=== PATIENT | male | born 1995 | race Caucasian/White ===

== ENCOUNTER 2022-11-29 20:00 | Emergency (ER) | payer OTHER ==
[2022-11-29 20:22] VITALS: BP 126/70; PULSE 87; RESP 18; TEMP 98.3
[2022-11-29 20:39] LABS: Appearance,Urine Clear (Clear); Bilirubin,Urine Negative (Negative); Blood,Urine Negative (Negative); Color,Urine Colorless; Glucose,Urine (UA) Negative (Negative); Ketones,Urine Negative (Negative); Leukocyte Esterase,Urine Negative (Negative); Nitrite,Urine Negative (Negative); PH, Urine 6.5 (5.0-8.0); Protein,Urine Negative (Negative); Specific Gravity,Urine <1.005 (1.001-1.035); Urobilinogen,Urine <2.0 mg/dL (<2.0)
[2022-11-29 20:52] LABS: RBC,Urine 0 /hpf (0-5); WBC,Urine 0 /hpf (0-5)
[2022-11-29] MEDS ORDERED: LORazepam 2 MG/ML INJ IV STA (21:26)
--- NOTE | 2022-11-29 21:31 | ED ---
General Adult HPI - General Chief complaint: Urogenital Stated complaint: UTI, Blood in urine, Inflammed Prostate Time Seen by Provider: 11/29/22 21:04 Source: patient Mode of arrival: ambulatory - History of Present Illness Initial comments: 27-year-old male presents to the ED with a chief complaint of blood in his sperm. Patient states for the past year, has had intermittent blood in his sperm. No pain with this however notes that he intermittently has difficulty controlling his stream. Additionally, she notes for the past week has had rectal pressure. States that he is concerned that he has prostatitis due to recent glucose search. Denies receptive anal sex or inserting objects into his anus. Denies fever. Denies testicular swelling or pain. No other complaints. - Related Data Previous Rx's Medication Instructions Recorded Phenyleph/Mineral Oil/Petrolat 1 applic RECTAL QID PRN #28 gm 11/29/22 [Preparation H Ointment] Allergies Allergy/AdvReac Type Severity Reaction Status Date / Time Penicillins Allergy Rash/Hives Verified 11/29/22 20:15 Review of Systems ROS Statement: Those systems with pertinent positive or pertinent negative responses have been documented in the HPI. ROS Other: All systems not noted in ROS Statement are negative. Past Medical History Past Medical History: No Reported History Past Surgical History: Joint Replacement Additional Past Surgical History / Comment(s): R knee General Exam Limitations: no limitations General appearance: alert, anxious Head exam: Present: atraumatic Neck exam: Present: normal inspection Respiratory exam: Present: normal lung sounds bilaterally, respiratory distress Cardiovascular Exam: Present: regular rate, normal rhythm GI/Abdominal exam: Present: soft exam: Present: normal inspection External exam: Present: other (Nonthrombosed external hemorrhoid) Neurological exam: Present: alert, oriented X3 Psychiatric exam: Present: anxious Skin exam: Present: warm, dry Course Vital Signs 11/29/22 20:16 Temperature 98.3 F Pulse Rate 87 Respiratory 18 Rate Blood Pressure 126/70 O2 Sat by Pulse 99 Oximetry Medical Decision Making - Medical Decision Making Was pt. sent in by a medical professional or institution (, PA, BEER COOLER, urgent care, hospital, or senior care...) When possible be specific @ -No Did you speak to anyone other than the patient for history (EMS, parent, family, police, friend...)? What history was obtained from this source @ -No Did you review nursing and triage notes (agree or disagree)? Why? @ -I reviewed and agree with nursing and triage notes Were old charts reviewed (outside hosp., previous admission, EMS record, old EKG, old radiological studies, urgent care reports/EKG's, senior care records)? Report findings @ -No old charts were reviewed Differential Diagnosis (chest pain, altered mental status, abdominal pain women, abdominal pain men, vaginal bleeding, weakness, fever, dyspnea, syncope, headache, dizziness, GI bleed, back pain, seizure, CVA, palpatations, mental health, musculoskeletal)? @ -Differential Abdominal Pain Men: Appendicitis, cholecystitis, diverticulosis, ischemic bowel, pancreatitis, hepatitis, UTI, gastroenteritis, AAA, incarcerated hernia, bowel obstruction, constipation, inflammatory bowel, hepatitis, peptic ulcer disease, splenic infarction, perforated viscus, testicular torsion, this is not meant to be an all-inclusive list EKG interpreted by me (3pts min.). @ -None X-rays interpreted by me (1pt min.). @ -None done CT interpreted by me (1pt min.). @ -None done U/S interpreted by me (1pt. min.). @ -None done What testing was considered but not performed or refused? (CT, X-rays, U/S, labs)? Why? @ -None What meds were considered but not given or refused? Why? @ -None Did you discuss the management of the patient with other professionals (professionals i.e. , PA, BEER COOLER, lab, RT, psych nurse, social media developer, technical support internship, teacher, transit police officer, shoe caser)? Give summary @ -No Was smoking cessation discussed for >3mins.? @ -No Was critical care preformed (if so, how long)? @ -No Were there social determinants of health that impacted care today? How? (Homelessness, low income, unemployed, alcoholism, drug addiction, transportation, low edu. Level, literacy, decrease access to med. care, alf, rehab)? @ -No Was there de-escalation of care discussed even if they declined (Discuss DNR or withdrawal of care, Hospice)? DNR status @ -No What co-morbidities impacted this encounter? (DM, HTN, Smoking, COPD, CAD, Cancer, CVA, ARF, Chemo, Hep., AIDS, mental health diagnosis, sleep apnea, morbid obesity)? @ -None Was patient admitted / discharged? Hospital course, mention meds given and route, prescriptions, significant lab abnormalities, going to OR and other pertinent info. @ -Discharged. Patient not currently having any symptoms of blood in sperm and is afebrile. Additionally, urinalysis here reveals no abnormalities. Exam did reveal nonthrombosed external hemorrhoid. Provided prescription for preparation H. Instructed use of witch afsaneh pads and sitz bath. Additionally advised to increase fiber intake. Provided referral to follow up with urology. Discharged home in stable condition. Undiagnosed new problem with uncertain prognosis? @ -No Drug Therapy requiring intensive monitoring for toxicity (Heparin, Nitro, Insulin, Cardizem)? @ -No Were any procedures done? @ -No Diagnosis/symptom? @ -External hemorrhoid Acute, or Chronic, or Acute on Chronic? @ -Acute Uncomplicated (without systemic symptoms) or Complicated (systemic symptoms)? @ -Uncomplicated Side effects of treatment? @ -No Exacerbation, Progression, or Severe Exacerbation? @ -No Poses a threat to life or bodily function? How? (Chest pain, [place], [place], pneumonia, PE, COPD, DKA, ARF, appy, cholecystitis, CVA, Diverticulitis, Homicidal, Suicidal, threat to staff... and all critical care pts) @ -No - Lab Data Lab Results 11/29/22 Range/Units 20:29 Urine Color Colorless Urine Appearance Clear (Clear) Urine pH 6.5 (5.0-8.0) Ur Specific [place] <1.005 (1.001-1.035) Urine Protein Negative (Negative) Urine Glucose (UA) Negative (Negative) Urine Ketones Negative (Negative) Urine Blood Negative (Negative) Urine Nitrite Negative (Negative) Urine Bilirubin Negative (Negative) Urine Urobilinogen <2.0 (<2.0) mg/dL Ur Leukocyte Esterase Negative (Negative) Urine RBC 0 (0-5) /hpf Urine WBC 0 (0-5) /hpf Urine Bacteria NONE (None) /hpf Urine Mucus NONE (None) /hpf Disposition Clinical Impression: Hemorrhoid Disposition: HOME SELF-CARE Condition: Good Instructions (If sedation given, give patient instructions): Hemorrhoids (ED) Additional Instructions: Please return to the Emergency Department if symptoms worsen or any other concerns. Also try witch afsaneh pads, sitz bath. Increase fiber intake. Follow up with PCP Prescriptions: Phenyleph/Mineral Oil/Petrolat [Preparation H Ointment] 1 applic RECTAL QID PRN #28 gm PRN Reason: Pain Is patient prescribed a controlled substance at d/c from ED?: No Referrals: None,Stated [Primary Care Provider] - 1-2 days Reyes Quezada MD [STAFF PHYSICIAN] - 1-2 days Time of Disposition: 21:31
== END 2022-11-29 21:59 | disposition home or self-care (01) ==
LOC: EC 20:00
DX: K64.9 Unspecified hemorrhoids (principal); Z88.0 Allergy status to penicillin
CPT/HCPCS: 81003; 99283; 96374; J2060

== ENCOUNTER 2023-08-17 21:53 | Emergency (ER) | payer OTHER ==
[2023-08-17] MEDS: DOXYCYCLINE 100 MG CAP PO STA (22:26)
[2023-08-17] MEDS: DIPH,PERTUS(ACELL)TETVAC-LF 0.5 ML VIAL IM ONE (22:27)
--- NOTE | 2023-08-17 22:43 | ED ---
Animal Bite HPI - General Chief Complaint: Animal Bite Stated Complaint: Dog Bite R Hand Time Seen by Provider: 08/17/23 21:59 Source: patient Mode of arrival: ambulatory Limitations: no limitations - History of Present Illness Initial Comments: 27-year-old male presenting with chief complaint of dog bite. The bite was from his own dog. Complaint is to the right pointer finger. Patient still has full range of motion and sensation to the finger. Not sure when her last tetanus shot was. - Related Data Previous Rx's Medication Instructions Recorded Phenyleph/Mineral Oil/Petrolat 1 applic RECTAL QID PRN #28 gm 11/29/22 [Preparation H Ointment] Doxycycline [Vibramycin] 100 mg PO BID 7 Days #14 capsule 08/17/23 Allergies Allergy/AdvReac Type Severity Reaction Status Date / Time Penicillins Allergy Rash/Hives Verified 08/17/23 21:59 Review of Systems ROS Statement: Those systems with pertinent positive or pertinent negative responses have been documented in the HPI. ROS Other: All systems not noted in ROS Statement are negative. Past Medical History Past Medical History: No Reported History History of Any Multi-Drug Resistant Organisms: None Reported Past Surgical History: Joint Replacement Additional Past Surgical History / Comment(s): R knee Past Psychological History: Anxiety Smoking Status: Vaper Past Alcohol Use History: None Reported Past Drug Use History: None Reported General Exam Limitations: no limitations General appearance: alert, in no apparent distress Head exam: Present: atraumatic, normocephalic Eye exam: Present: normal appearance, EOMI Neck exam: Present: normal inspection. Absent: meningismus Respiratory exam: Absent: respiratory distress Cardiovascular Exam: Present: regular rate Right Hand Wrist exam: Absent: normal inspection (Puncture wounds to the right pointer finger) Neurological exam: Present: alert, oriented X3 Psychiatric exam: Present: normal affect, normal mood Skin exam: Present: other (Dog bite right pointer finger) Course Vital Signs 08/17/23 08/17/23 21:56 23:10 Temperature 97.9 F Pulse Rate 84 82 Respiratory 18 18 Rate Blood Pressure 152/88 125/78 O2 Sat by Pulse 100 100 Oximetry Medical Decision Making - Medical Decision Making Was pt. sent in by a medical professional or institution (, PA, FACILITY MAINTENANCE WORKER, urgent care, hospital, or half-way...) When possible be specific @ -No Did you speak to anyone other than the patient for history (EMS, parent, family, police, friend...)? What history was obtained from this source @ -No Did you review nursing and triage notes (agree or disagree)? Why? @ -I reviewed and agree with nursing and triage notes Were old charts reviewed (outside hosp., previous admission, EMS record, old EKG, old radiological studies, urgent care reports/EKG's, half-way records)? Report findings @ -No old charts were reviewed Differential Diagnosis (chest pain, altered mental status, abdominal pain women, abdominal pain men, vaginal bleeding, weakness, fever, dyspnea, syncope, headache, dizziness, GI bleed, back pain, seizure, CVA, palpatations, mental health, musculoskeletal)? @ -Differential includes laceration, fracture, dislocation, this is not an all- inclusive list EKG interpreted by me (3pts min.). @ -As above X-rays interpreted by me (1pt min.). @ -None done CT interpreted by me (1pt min.). @ -None done U/S interpreted by me (1pt. min.). @ -None done What testing was considered but not performed or refused? (CT, X-rays, U/S, labs)? Why? @ -None What meds were considered but not given or refused? Why? @ -None Did you discuss the management of the patient with other professionals (professionals i.e. , PA, FACILITY MAINTENANCE WORKER, lab, RT, psych nurse, social work professor, ledge man, teacher, chief security and safety officer, caseworker intake)? Give summary @ -No Was smoking cessation discussed for >3mins.? @ -No Was critical care preformed (if so, how long)? @ -No Were there social determinants of health that impacted care today? How? (Homelessness, low income, unemployed, alcoholism, drug addiction, transportation, low edu. Level, literacy, decrease access to med. care, retirement, rehab)? @ -No Was there de-escalation of care discussed even if they declined (Discuss DNR or withdrawal of care, Hospice)? DNR status @ -No What co-morbidities impacted this encounter? (DM, HTN, Smoking, COPD, CAD, Cancer, CVA, ARF, Chemo, Hep., AIDS, mental health diagnosis, sleep apnea, morbid obesity)? @ -None Was patient admitted / discharged? Hospital course, mention meds given and route, prescriptions, significant lab abnormalities, going to OR and other pertinent info. @ -27-year-old male presenting with chief complaint of dog bite to the right index finger. This was his own dog. He has full range of motion and sensation on exam. The wound is vigorously irrigated. Educated on wound care and signs of infection. His tetanus is updated today. He is started on doxycycline due to penicillin allergy. Discharged home. Follow-up with PCP. Report back to ER with any new or worsening symptoms. Discussed return parameters and answered all questions. Patient conveyed verbal understanding and agreed to the plan. I discussed this case in detail with my attending Dr. Lynn Undiagnosed new problem with uncertain prognosis? @ -No Drug Therapy requiring intensive monitoring for toxicity (Heparin, Nitro, Insulin, Cardizem)? @ -No Were any procedures done? @ -No Diagnosis/symptom? @ -Dog bite Acute, or Chronic, or Acute on Chronic? @ -Acute Uncomplicated (without systemic symptoms) or Complicated (systemic symptoms)? @ -Uncomplicated Side effects of treatment? @ -No Exacerbation, Progression, or Severe Exacerbation? @ -No Poses a threat to life or bodily function? How? (Chest pain, [place], [place], pneumonia, PE, COPD, DKA, ARF, appy, cholecystitis, CVA, Diverticulitis, Homicidal, Suicidal, threat to staff... and all critical care pts) @ -No Disposition Clinical Impression: Dog bite Disposition: HOME SELF-CARE Condition: Good Instructions (If sedation given, give patient instructions): Animal Bite (ED) Additional Instructions: Follow-up with PCP. Report back to ER with any new or worsening symptoms. Prescriptions: Doxycycline [Vibramycin] 100 mg PO BID 7 Days #14 capsule Is patient prescribed a controlled substance at d/c from ED?: No Referrals: [facility],Clinic [Primary Care Provider] - 1-2 days Time of Disposition: 22:42
[2023-08-17 22:56] VITALS: RESP 18; TEMP 97.9
[2023-08-17 23:32] VITALS: BP 125/78; PULSE 82
== END 2023-08-17 23:16 | disposition home or self-care (01) ==
LOC: EC 21:53
DX: S61.256A Open bite of right little finger without damage to nail, initial encounter (principal); F17.290 Nicotine dependence, other tobacco product, uncomplicated; Z88.0 Allergy status to penicillin; Z23 Encounter for immunization; W54.0XXA Bitten by dog, initial encounter
CPT/HCPCS: 90471; 90715; 99283

== ENCOUNTER 2024-03-24 21:18 | Emergency (ER) | payer OTHER ==
[2024-03-24 21:23] VITALS: TEMP 98.2
--- NOTE | 2024-03-24 22:35 | ED ---
Alcohol HPI - General Chief Complaint: Alcohol Stated Complaint: ETOH Time Seen by Provider: 03/24/24 22:03 Source: patient, EMS Mode of arrival: EMS Limitations: no limitations - History of Present Illness Initial Comments: 28-year-old male brought in by EMS while intoxicated. Mother accompanies the patient, she reports that the patient has been under a lot of stress recently. He recently went through a very stressful break-up. Tonight he drank about a pint +2 beers. She reports that he was acting strange, he was laying on the floor and would not get up. Mother was worried so she called EMS. Patient states that he just feels tired at this time. He has no nausea, vomiting, pain. - Related Data Previous Rx's Medication Instructions Recorded Phenyleph/Mineral Oil/Petrolat 1 applic RECTAL QID PRN #28 gm 11/29/22 [Preparation H Ointment] Doxycycline [Vibramycin] 100 mg PO BID 7 Days #14 capsule 08/17/23 Allergies Allergy/AdvReac Type Severity Reaction Status Date / Time Penicillins Allergy Rash/Hives Verified 03/24/24 21:23 Review of Systems ROS Statement: Those systems with pertinent positive or pertinent negative responses have been documented in the HPI. ROS Other: All systems not noted in ROS Statement are negative. Past Medical History Past Medical History: No Reported History History of Any Multi-Drug Resistant Organisms: None Reported Past Surgical History: Joint Replacement Additional Past Surgical History / Comment(s): R knee Past Psychological History: Anxiety Smoking Status: Vaper Past Alcohol Use History: Occasional Past Drug Use History: Marijuana General Exam General appearance: alert, appears intoxicated Head exam: Present: atraumatic, normocephalic, normal inspection Eye exam: Present: normal appearance, EOMI Neck exam: Present: normal inspection. Absent: meningismus Respiratory exam: Absent: respiratory distress Cardiovascular Exam: Present: regular rate Neurological exam: Present: alert, oriented X3 Psychiatric exam: Present: normal affect, normal mood Skin exam: Present: normal color Course Vital Signs 03/24/24 21:19 Temperature 98.2 F Pulse Rate 88 Respiratory 18 Rate Blood Pressure 124/73 O2 Sat by Pulse 99 Oximetry Medical Decision Making - Medical Decision Making Was pt. sent in by a medical professional or institution (, PA, FUR VAULT ATTENDANT, urgent care, hospital, or [facility]...) When possible be specific @ -No Did you speak to anyone other than the patient for history (EMS, parent, family, police, friend...)? What history was obtained from this source @ -Mother Did you review nursing and triage notes (agree or disagree)? Why? @ -I reviewed and agree with nursing and triage notes Were old charts reviewed (outside hosp., previous admission, EMS record, old EKG, old radiological studies, urgent care reports/EKG's, [facility] records)? Report findings @ -No old charts were reviewed Differential Diagnosis (chest pain, altered mental status, abdominal pain women, abdominal pain men, vaginal bleeding, weakness, fever, dyspnea, syncope, headache, dizziness, GI bleed, back pain, seizure, CVA, palpatations, mental health, musculoskeletal)? @ -Differential includes alcohol intoxication, intoxication from other substance, this is not an all-inclusive list EKG interpreted by me (3pts min.). @ -As above X-rays interpreted by me (1pt min.). @ -None done CT interpreted by me (1pt min.). @ -None done U/S interpreted by me (1pt. min.). @ -None done What testing was considered but not performed or refused? (CT, X-rays, U/S, labs)? Why? @ -None What meds were considered but not given or refused? Why? @ -None Did you discuss the management of the patient with other professionals (professionals i.e. , PA, FUR VAULT ATTENDANT, lab, RT, psych nurse, manager social, independent film maker, teacher, worldwide chief creative officer, shelter case manager)? Give summary @ -No Was smoking cessation discussed for >3mins.? @ -No Was critical care preformed (if so, how long)? @ -No Were there social determinants of health that impacted care today? How? (Homelessness, low income, unemployed, alcoholism, drug addiction, transportation, low edu. Level, literacy, decrease access to med. care, residential, rehab)? @ -No Was there de-escalation of care discussed even if they declined (Discuss DNR or withdrawal of care, Hospice)? DNR status @ -No What co-morbidities impacted this encounter? (DM, HTN, Smoking, COPD, CAD, Cancer, CVA, ARF, Chemo, Hep., AIDS, mental health diagnosis, sleep apnea, morbid obesity)? @ -None Was patient admitted / discharged? Hospital course, mention meds given and route, prescriptions, significant lab abnormalities, going to OR and other pertinent info. @ -28-year-old male brought in by EMS with alcohol intoxication. Patient's mother called EMS when he was lying on the ground and would not get up. Patient is resting showing no acute signs of distress. He answers my questions appropriately, he states that he is just very tired. Vital signs are stable. Patient is having no thoughts of wanting to harm himself or others. Mother does not believe that the patient needs a mental health evaluation. Patient is given IV fluids and discharged home with his mother. Follow-up with PCP. Report back to ER with any new or worsening symptoms. Discussed return parameters and answered all questions. Patient's mother conveyed verbal understanding and agreed to the plan. I discussed this case in detail with my attending Dr. Torres Undiagnosed new problem with uncertain prognosis? @ -No Drug Therapy requiring intensive monitoring for toxicity (Heparin, Nitro, Insulin, Cardizem)? @ -No Were any procedures done? @ -No Diagnosis/symptom? @ -Alcohol intoxication Acute, or Chronic, or Acute on Chronic? @ -Acute Uncomplicated (without systemic symptoms) or Complicated (systemic symptoms)? @ -Uncomplicated Side effects of treatment? @ -No Exacerbation, Progression, or Severe Exacerbation? @ -No Poses a threat to life or bodily function? How? (Chest pain, [place], [place], pneumonia, PE, COPD, DKA, ARF, appy, cholecystitis, CVA, Diverticulitis, Homicidal, Suicidal, threat to staff... and all critical care pts) @ -Low likelihood at this time Disposition Clinical Impression: Alcoholic intoxication Disposition: HOME SELF-CARE Condition: Good Instructions (If sedation given, give patient instructions): Alcohol Intoxicati on (ED) Additional Instructions: Follow-up with PCP. Report back to ER with any new or worsening symptoms. Is patient prescribed a controlled substance at d/c from ED?: No Referrals: [facility] PT [REFERRING] - 1-2 days [facility],Clinic [REFERRING] - 1-2 days Time of Disposition: 23:45
[2024-03-24] MEDS: SODIUM CHLORIDE 0.9% 1,000 ML IV ONE (23:29)
[2024-03-25 00:50] VITALS: BP 124/68; PULSE 96; RESP 17
== END 2024-03-25 00:50 | disposition home or self-care (01) ==
LOC: EC 21:18
DX: F10.129 Alcohol abuse with intoxication, unspecified (principal); F17.290 Nicotine dependence, other tobacco product, uncomplicated; Z88.0 Allergy status to penicillin
CPT/HCPCS: 96360; 99284